=== PATIENT | female | born 1970 | race Caucasian/White ===

== ENCOUNTER 2024-02-14 08:00 | Outpatient (RCR) | payer OTHER, SELFPAY | END 2024-07-28 09:27 | disposition home or self-care (01) | LOC: HO.PTWFD 08:00 | PROVIDERS: Visit Provider Nurse Practitioner Women's Health | DX: M54.16 Radiculopathy, lumbar region (principal); M47.896 Other spondylosis, lumbar region; M51.36 Other intervertebral disc degeneration, lumbar region; M41.125 Adolescent idiopathic scoliosis, thoracolumbar region | CPT/HCPCS: 97110; 97140; 97162; 97535 ==

== ENCOUNTER 2025-06-15 10:59 | Outpatient (AMB) | payer OTHER, SELFPAY ==
--- NOTE | 2025-06-15 11:20 | A.OFFVIS_ITS ---
Intake Visit Reasons: Kidney stones/Recurrent UTI (set)UA+PVR) Intake Note: New patient presents today for initial visit for kidney stones/recurrent UTI's Urology Medication:None Blood Thinner:None Antibiotic Allergies:None PVR:24ml Allergies kiwi (Kiwi (Actinidia Chinensis)) Allergy (Severe, Verified 06/15/25 11:35) ANAPHYLAXIS Sulfa (Sulfonamide Antibiotics) Allergy (Mild, Verified 06/15/25 11:35) RASH Medication List - Last Reconciled 06/15/25 by Arden Shen MD amoxicillin-pot clavulanate 875-125 mg 1 tab PO BID 14 days losartan-hydrochlorothiazide 100-25 mg 1 tab PO DAILY meloxicam 15 mg PO DAILY metformin ER 500 mg PO DAILY omeprazole 20 mg PO DAILY tirzepatide (weight loss) (Zepbound) mg subcut tramadol 50 mg PO HPI Comments Details: 06/15/25--History of Present Illness The patient is a 55 year old female presenting for evaluation of a long history of kidney stones. She reports having passed more than 50 stones and has undergone multiple lithotripsy procedures. A year ago, she had two surgical procedures to remove stones, which included stent placements on both sides. A follow-up CT scan revealed she still had numerous stones on both sides. She decided to change urologists. She has had 24- hour urine studies performed as well. The patient has had recurrent UTIs and has been on antibiotics continuously since February after a UTI began while she was on vacation in [place]. She has been treated with three courses of Macrobid and is now completing different antibiotic. (cephalosporin) In May, the patient states she went to the emergency room with a high fever, but she did not receive IV antibiotics despite being advised to get them at an urgent care visit. The patient reports significant chronic pain, primarily on the left side, which is worse than her usual back pain from severe scoliosis. This pain limits her ability to exercise, including swimming. She takes meloxicam for her back pain, which has not helped this pain, and her PCP suggested trying naproxen. Results - Imaging: - CT scan (03/02/25): Showed multiple stones in both kidneys, including 8 mm stone upper pole right kidney and 7 mm stone in left kidney - Ultrasound (04/09/25): Report was consistent with the CT scan noted multiple stones, bilaterally. - Labs: - Urine culture: 05/16/25--Ecoli - pansensitive. [facility] Medical History Lumbar radiculopathy Kidney stone Chronic back pain HTN (hypertension) Recurrent UTI Surgical History Hx of lithotripsy Review of Systems Const All systems reviewed & are unremarkable except as noted in HPI and below Reports no additional complaints Eyes Reports no additional complaints ENT Reports no additional complaints Card Reports no additional complaints Resp Reports no additional complaints GI Reports no additional complaints Reports as per HPI Musc Reports no additional complaints Skin/Breast Reports system reviewed and no additional complaints, except as documented Neuro Reports no additional complaints Psych Reports no additional complaints Endo Reports no additional complaints Micheal/Lymph Reports no additional complaints Aller/Immun Reports no additional complaints Physical Exam Const General: cooperative, healthy appearing and no acute distress Orientation/consciousness: patient oriented x3 HEENT Head: Yes normal to inspection, Yes normocephalic and Yes atraumatic Eyes Conjunctivae: conjunctivae normal Neck Neck: Yes normal visual inspection and Yes trachea midline Chest Chest palpation & inspection: normal inspection of the chest Resp Effort & Inspection: normal respiratory effort GI Inspection: Yes normal to inspection Neuro General: patient oriented x3 Psych Appearance: grossly normal Office Procedures Post Void Residual Post Residual Void Post Void Residual (PVR): 24 [id number] Void Residual by ultrasound Results AMB Urinalysis, Automated UA Leukoctes 15 Karen/uL Last Edit by Funmilayo Haley on 06/15/25 15:38 UA Nitrite Negative Last Edit by Funmilayo Haley on 06/15/25 15:38 UA Urobilinogen 0.2 mg/dL Last Edit by Funmilayo Haley on 06/15/25 15:38 UA Protein 15 mg/dL Last Edit by Funmilayo Haley on 06/15/25 15:38 UA pH 6.5 Last Edit by Funmilayo Haley on 06/15/25 15:38 UA Blood 25 Ed/uL Last Edit by Funmilayo Haley on 06/15/25 15:38 UA Specific [place] 1.010 Last Edit by Funmilayo Haley on 06/15/25 15:38 UA Ketone Negative Last Edit by Funmilayo Haley on 06/15/25 15:38 UA Bilirubin 0 mg/dL Last Edit by Funmilayo Haley on 06/15/25 15:38 UA Glucose 0 mg/dL Last Edit by Funmilayo Haley on 06/15/25 15:38 Results Reviewed Results Reviewed: Laboratory Last Values Urine pH (Auto) 6.5 06/15/25 12:10 Specific [place] (Auto) 1.010 06/15/25 12:10 Urine Protein (Auto) 15 mg/dL 06/15/25 12:10 Glucose (UA)(Auto) 0 mg/dL 06/15/25 12:10 Urine Ketones (Auto) Negative 06/15/25 12:10 Urine Blood (Auto) 25 Ed/uL 06/15/25 12:10 Urine Nitrite (Auto) Negative 06/15/25 12:10 Urine Bilirubin (Auto) 0 mg/dL 06/15/25 12:10 Urine Urobilinogen (Auto) 0.2 mg/dL 06/15/25 12:10 Leukocyte Esterase (Auto) 15 Karen/uL 06/15/25 12:10 Assessment & Plan Assessment & Plan (1) Hematuria: Code(s): R31.9 - Hematuria, unspecified Category: Medical (2) Flank pain: Code(s): R10.A0 - Flank pain, unspecified side Category: Medical (3) Recurrent UTI: Code(s): N39.0 - Urinary tract infection, site not specified Category: Medical (4) Bilateral kidney stones: Code(s): N20.0 - Calculus of kidney Category: Medical Plan CT Urogram Augmentin 875 mg bid for 14 days Orders: Orders Urine Culture Today N20.0 - Calculus of kidney, N39.0 - Urinary tract infection, site not specified, R31.9 - Hematuria, unspecified AMB Urinalysis Automated Today N39.0 - Urinary tract infection, site not specified AMB Post Void Residual by ultrasound Today N39.0 - Urinary tract infection, site not specified CT urogram Today R10.A0 - Flank pain, unspecified side, R31.9 - Hematuria, unspecified AMB Urinalysis Automated Today Z13.9 - Encounter for screening, unspecified Medications: New amoxicillin-pot clavulanate 875-125 mg 1 tab PO BID 28 tabs 0RF 14 days Patient Instructions: The patient had an opportunity to ask questions regarding treatment plan. The patient expressed understanding and agreement with the above treatment plan. The patient is aware they should contact our office by phone for worsening of their current condition or the appearance of new symptoms. Compliance is encouraged with any medications and followup testing that is ordered. It is a privilege to be allowed the opportunity to participate in the urologic care of your patient. If you have any questions or concerns regarding treatment for the above conditions please do not hesitate to contact me. The office telephone contact is [phone]. This note is constructed in part using voice recognition software. While every effort has been made to ensure accuracy resource management planner errors may have been included. Yours sincerely, Arden Shen MD Scribe Plan - Not visible on output: Patient was informed and verbally consented to the use of an ambient scribe for clinic note documentation during this visit. Coding Level of Care Code New Pt Level 4 (28857) Diagnoses Hematuria R31.9 Flank pain R10.A0 Recurrent UTI N39.0 Bilateral kidney stones N20.0 CPT Codes Post Residual Void - PVR CPT Code: 60791-Ydgn Void Residual by ultrasound ([id number])
== END 2025-06-15 13:37 | disposition home or self-care (01) ==
LOC: HO.HUSH 10:59
PROVIDERS: Visit Provider Urology
DX: R31.9 Hematuria, unspecified (principal); R10.A0 Flank pain, unspecified side; N39.0 Urinary tract infection, site not specified; N20.0 Calculus of kidney
CPT/HCPCS: 99204

== ENCOUNTER 2025-06-15 10:59 | Outpatient (REF) | payer OTHER, SELFPAY ==
--- OUTSIDE RECORDS SUMMARY | 2025-06-15 20:34 | XMS_ITS | Encounter Summary ---
Author Organization [facility] Address [address] [place] [address] Phone Care Team Providers Care Packing House Laborer Name Role Phone Gregoria Lopez PA-C Primary Care Provider [phone] Lucía Watson NP Primary Care Pr ovider Erika Calles MD Unavailable [phone] Encounter Details Date Type Department Care Team (Late st Contact Info) Description 11/16/2019 Transcribe Orders Virtual Department [address] [place] [address] Lucía Watson, ELIZAB[address] [place] [address] Pelvic cramping (Primary Dx) Social History Tobacco Use Types Packs/Day Years Used Date Smoking Tobacco: Never Assessed Comments Unknown Sex and Gender Information Value Date Recorded Sex Assigned at Female 07/17/2020 7:48 PM EST Legal Sex Female 9:36 PM EDT Gender Identity Female 07/17/2020 7:48 PM EST Sexual Orientation Straight 07/17/2020 7: 48 PM EST documented as of this encounter Plan of Treatment Not on file documented as of this encounter Results * US PELVIS TRANSABDOMINAL PLUS TRANSVAGINAL (11/24/2019 12:31 PM EDT) Anatomical Region Laterality Modality Pelvis, Uterus/Adnexa Ultrasound 11/24/2019 12:2 6 PM EDT Impressions 11/24/2019 12:47 PM EDT 1. Intrauterine device identified at 0.4 cm from the fundic end of the endometrial cavity. 2. Uterine leiomyomas. 3. Mild left hydroureteronephrosis with distal ureteral stone. Patient states history of known chronic kidney stones and fibroids. POS - [id number] Narrative 11/24/2019 12:47 PM EDT EXAM: US PELVIS TRANSABDOMINAL PLUS TRANSVAGINAL COMPARISON: None HISTORY: PT HAS IUD IN PLACE REPORTING STRINGS FEELING LOWER THAN USUAL WITH NEW ONSET CRAMPING. EVALUATE IUD PLACEMENT. FINDINGS: UTERUS: The uterus is anteflexed and midline, measures 10.9 cm x 6.2 cm x 6.5 cm, volume of 230.0 cm3, and demonstrates heterogeneous myometrial echotexture. There is a 2.6 x 1.5 x 1.7 cm exophytic mass on the left side of the fundus that likely represents a subserosal leiomyoma. Additional 1.3 x 1.1 x 1.1 cm hypoechoic lesion in the left uterine body likely represents an intramural leiomyoma. The endometrial echocomplex measures 0.5 cm in thickness. An intrauterine device is identified at 0.4 cm from the fundic end of the endometrial cavity. RIGHT OVARY: Only seen transabdominally. Measures 2.9 cm x 1.7 cm x 1.6 cm, volume of 4.1 cm3. Unremarkable appearance LEFT OVARY: Not visualized. PELVIS: No free fluid. OTHERS: Mild hydroureteronephrosis. Visualized portion of the proximal ureter measures 0.5 cm in caliber. The visualized distal left ureter measures up to 0.5 cm in caliber. There is a 0.9 cm echogenic focus associated with posterior acoustic shadowing and twinkle artifact in the visualized portion of the left ureter. Procedure Note Magaly Pittman MD - 11/24/2019 EXAM: US PELVIS TRANSABDOMINAL PLUS TRANSVAGINAL COMPARISON: None HISTORY: PT HAS IUD IN PLACE REPORTING STRINGS FEELING LOWER THAN USUALWITH NEW ONSET CRAMPING. EVALUATE IUD PLACEMENT. FINDINGS: UTERUS: The uterus is anteflexed and midline, measures 10.9 cm x 6.2 cm x6.5 cm, volume of 230.0 cm3, and demonstrates heterogeneous myometrialechotexture. There is a 2.6 x 1.5 x 1.7 cm exophytic mass on the left sideof the fundus that likely represents a subserosal leiomyoma. Additional1.3 x 1.1 x 1.1 cm hypoechoic lesion in the left uterine body likelyrepresents an intramural leiomyoma. The endometrial echocomplex measures0.5 cm in thickness. An intrauterine device is identified at 0.4 cm fromthe fundic end of the endometrial cavity. RIGHT OVARY: Only seen transabdominally. Measures 2.9 cm x 1.7 cm x 1.6cm, volume of 4.1 cm3. Unremarkable appearance LEFT OVARY: Not visualized. PELVIS: No free fluid. OTHERS: Mild hydroureteronephrosis. Visualized portion of the proximalureter measures 0.5 cm in caliber. The visualized distal left uretermeasures up to 0.5 cm in caliber. There is a 0.9 cm echogenic focusassociated with posterior acoustic shadowing and twinkle artifact in thevisualized portion of the left ureter. IMPRESSION: 1. Intrauterine device identified at 0.4 cm from the fundic end of theendometrial cavity. 2. Uterine leiomyomas. 3. Mild left hydroureteronephrosis with distal ureteral stone. Patient states history of known chronic kidney stones and fibroids. POS - [id number] Lucía Peace ELECTRIC LIFT TRUCK DRIVER [facility] US PELVIS Final Result documented in this encounter Visit Diagnoses Diagnosis Pelvic cramping- Primary Pelvic cramping documented in this encounter Care Teams Packing House Laborer Relationship Specialty Start Date End Date Gregoria Lopez PA-C [address] [place] [address] [place] [address] PCP - General Unknown Provider Specialty 06/15/18 11/23/19 Lucía Watson [place] [facility] [place] [address] PCP - General Family Medicine 11/24/19 Erika Calles MD [address] [place] [address] [email or web address] Insurance Assigned Provider 10/09/23 12/11/23 documented as of this encounter Additional Source Comments The information contained in this document represents components of the legal health record. It is not the complete legal health record.[facility]
--- OUTSIDE RECORDS SUMMARY | 2025-06-15 20:34 | XMS_ITS | Encounter Summary ---
Author Organization [facility] Address [address] [place] [address] Phone Care Team Providers Care Airplane Cleaner Name Role Phone Lucía Watson DESK INTERVIEWER Primary Care Pr ovider Encounter Details Date Type Department Care Team (Late st Contact Info) Description 03/24/2024 Ancillary Orders [facility], X-Ray - [address] [address] Mary Loo PA [address] [place] [address]. [place] [address] [email or web address] Pain of left heel (Primary Dx) Social History Tobacco Use Types Packs/Day Years Used Date Smoking Tobacco: Never Alcohol Use Standard Drinks/Week Comments Yes 0 (1 standard drink = 0.6 oz pur e alcohol) wine occasionally Education Answer Date Recorded Are you interested in more education? Not on yung e 10/30/2022 Are you concerned about learning? Not on file 10/30/2022 No 10/30/2022 No 10/30/2022 Digital Access Answer Date Recorded No 11/28/2022 No 11/28/2022 Reliable internet access at home? Not on file 11/28/2022 Device with a working camera? Not on file Comments Unknown Sex and Gender Information Value Date Recorded Sex Assigned at Female 07/17/2020 7:48 PM EST Legal Sex Female 9:36 PM EDT Gender Identity Female 07/17/2020 7:48 PM EST Sexual Orientation Straight 07/17/2020 7: 48 PM EST documented as of this encounter Plan of Treatment Not on file documented as of this encounter Results * XR FOOT 3 OR MORE VIEWS (LEFT) (03/24/2024 11:10 AM EDT) Anatomical Region Laterality Modality Foot Left Computed Radiogr aphy 03/25/2024 3:01 PM EDT Impressions 03/25/2024 3:02 PM EDT No fracture or dislocation. Narrative 03/25/2024 3:02 PM EDT XR FOOT 3 OR MORE VIEWS (LEFT) Referring clinician's provided indication for this examination in Epic: Pain COMPARISON: FINDINGS: No fracture. Normal alignment. Normal joint spaces. No soft tissue swelling. Procedure Note Esteban Devine MD - 03/25/2024 XR FOOT 3 OR MORE VIEWS (LEFT) Referring clinician's provided indication for this examination in Epic:Pain COMPARISON: FINDINGS: No fracture. Normal alignment. Normal joint spaces. No soft tissueswelling. IMPRESSION: No fracture or dislocation. Mary ROMEO IMG XR LOWER EXTREMITY Final Result documented in this encounter Visit Diagnoses Diagnosis Pain of left heel- Primary Pain of left heel documented in this encounter Care Teams Airplane Cleaner Relationship Specialty Start Date End Date Lucía [facility] [place] [address] PCP - General Family Medicine 11/24/19 documented as of this encounter Additional Source Comments The information contained in this document represents components of the legal health record. It is not the complete legal health record.[facility]
--- OUTSIDE RECORDS SUMMARY | 2025-06-15 20:34 | XMS_ITS | Encounter Summary ---
Author Organization [facility] Address [address] [place] [address] Phone Care Team Providers Care Immigration Attorney Name Role Phone Gregoria Lopez PA-C Primary Care Provider [phone] Lucía Watson NP Primary Care Pr ovider Erika Calles MD Unavailable [phone] Encounter Details Date Type Department Care Team (Latest Contact Info) Description 06/15/2018 Ancillary Orders Virtual Department [address] [place] [address] Siri Olguin NP [address] [place] [phone] [email or web address] Social History Tobacco Use Types Packs/Day Years [...] on file documented as of this encounter Visit Diagnoses Diagnosis Lumbar radiculopathy Thoracic or lumbosacral neuritis or radiculitis, unspecified documented in this encounter Care Teams Immigration Attorney Relationship Specialty Start Date End Date Gregoria Lopez PA-C [address] [place] [address] [place] [address] PCP - General Unknown Provider Specialty 06/15/18 11/23/19 Lucía Watson NP [address] [place] [address] PCP - General Family Medicine 11/24/19 Erika Calles MD [address] [place] [address] [email or web address] Insurance Assigned Provider 10/09/23 12/11/23 documented as of this encounter Additional Source Comments The information contained in this document represents components of the legal health record. It is not the complete legal health record.[facility]
--- OUTSIDE RECORDS SUMMARY | 2025-06-15 20:34 | XMS_ITS | Encounter Summary ---
Author Organization [facility] Address [address] [place] [address] Phone Care Team Providers Care Hadoop Developer Name Role Phone Lucía Watson LOCAL TELEPHONE OPERATOR Primary Care Pr ovider Erika Calles MD Unavailable [phone] Encounter Details Date Type Department Care Team (Latest Contact Info) Description 03/22/2023 Transcribe Orders Virtual Department [address] [place] [address] Erika Calles MD [address] [place] [address] [email or web address] Bilateral hip pain (Primary Dx); Kidney stone Social History Tobacco Use Types Packs/Day Years [...] as of this encounter Results * US Kidneys (04/26/2023 9:04 AM EDT) Anatomical Region Laterality Modality Abdomen, Kidney Ultrasound 04/26/2023 4:33 PM EDT Impressions 04/26/2023 6:04 PM EDT Nonobstructing left nephrolithiasis. No hydronephrosis. Narrative 04/26/2023 6:04 PM EDT US KIDNEYS TECHNIQUE: Kidney Ultrasound. COMPARISON: None FINDINGS: Right Kidney: Size: 11.0 cm Suboptimally visualized. No definite shadowing stones or hydronephrosis. Left Kidney: Size: 12.5 cm Echogenic shadowing calyceal foci measuring up to 11 mm in the interpolar region. No hydronephrosis. Bladder: Normal. Procedure Note Ronny Richmond MD - 04/26/2023 US KIDNEYS TECHNIQUE: Kidney Ultrasound. COMPARISON: None FINDINGS: Right Kidney: Size: 11.0 cm Suboptimally visualized. No definite shadowing stones orhydronephrosis. Left Kidney: Size: 12.5 cm Echogenic shadowing calyceal foci measuring up to 11 mm in the interpolarregion. No hydronephrosis. Bladder: Normal. IMPRESSION: Nonobstructing left nephrolithiasis. No hydronephrosis. us Erika Calles MD [facility] US RENAL Final Result documented in this encounter Visit Diagnoses Diagnosis Bilateral hip pain- Primary Pain in joint, pelvic region and thigh Kidney stone Calculus of kidney Kidney stone Calculus of kidney documented in this encounter Care Teams Hadoop Developer Relationship Specialty Start Date End Date Lucía Watson NP [address] [place] [address] PCP - General Family Medicine 11/24/19 Erika Calles MD [address] [place] [address] [email or web address] Insurance Assigned Provider 10/09/23 12/11/23 documented as of this encounter Additional Source Comments The information contained in this document represents components of the legal health record. It is not the complete legal health record.[facility]
--- OUTSIDE RECORDS SUMMARY | 2025-06-15 20:35 | XMS_ITS | Encounter Summary ---
Author Organization [employer] Address [address] [facility] [address] [place] [address] Care Team Providers Care Peoplesoft Financial Developer Name Role Phone [place] remy Unavailable Unavailable Naomi Hartmann NP Primary Care Provider [phone] Reason for Visit * Reason Onset Date Comments Prior Authorization 06/12/2025 Zepbound Encounter Details Date Type Department Care Team (Late st Contact Info) Description 06/12/2025 Telephone [facility] MEDICAL [address] [place] [address] Naomi Hartmann NP [address] [place] [address] Prior Authorization (Zepbound) Social History Tobacco Use Types Packs/Day Years Used Date Smoking Tobacco: Former Cigarettes Passive Smoke Exposure: Past Smokeless Tobacco: Never Alcohol Use Standard Drinks/Week Comments Yes 0 (1 standard drink = 0.6 oz pur e alcohol) 3 glasses of wine weekly PHQ-2 Answer Date Recorded Patient Health Questionnaire-2 Score 0 12/25/2022 Alcohol Answer Date Recorded How often do you have a drink containing alcohol ? 0 06/04/2025 How many drinks containing a lcohol do you have on a typical day when you are drinking? 0 06/04/2025 How often do you have six or more drinks on one occasion? 0 06/04/2025 Housing Stability Answer Date Recorded What is your housing situation today? I have leopoldo khan 01/14/[address] you li ve. Do you have problems with any of the following? None of the above 01/14/2024 Food Insecurity Answer Date Recorded Within the past 12 months, y ou worried that your food would run out before you got money to buy more: Never True 01/14/2024 Within the past 12 months,th e food you bought just didn't last and you didn't have enough money to get more: Never True 06/2024 Transportation Answer Date Recorded In the past 12 months, has l ack of transportation kept you from medical appts, meetings, work or from getting things needed for daily living? No 01/14/2024 Utilities Answer Date Recorded In the past 12 months, has t he electric, gas, oil or water company threatened to shut off services in your home? No 01/14/2024 Depression Answer Date Recorded Patient Health Questionnaire-2 Score 0 12/25/2022 Internet Access Answer Date Recorded Internet Access Q1 Yes 03/05/2024 Internet Access Q2 Not on file 03/05/2024 Education Answer Date Recorded What is the highest level of school you have completed or the highest degree you have received? Master's degree (e.g., MA, MS, Lucille, MEd, PURCHASER, [place]) 01/14/2024 Comments No Sex and Gender Information Value Date Recorded Sex Assigned at Female 10/14/2022 3:07 PM EDT Legal Sex Female 8:32 PM EDT Gender Identity Female 10/14/2022 3:07 PM EDT Sexual Orientation Straight 10/14/2022 3: 07 PM EDT Occupation Industry Job Start Date Job End Date Self-employed Not on file Not on file Not on file documented as of this encounter Miscellaneous Notes * Telephone Encounter - Yue Landa LPN - 06/13/2025 8:43 AM EST Information regarding your request An active PA is already on file with expiration date of 05/08/2026. Please wait to resubmit requestwithin 60 days of that expiration date to obtain a PA renewal. Pt aware via [employer] * Telephone Encounter - Yue Landa LPN - 06/12/2025 10:08 AM EST Pt needs a new pa on Zepbound but when I calculated her weight, she hasn't lost the 5% weight loss to get this covered. Since start of Zepbound only 3.9%. Please advise PT documented in this encounter Plan of Treatment Upcoming Encounters Date Type Department Care Team (Late st Contact Info) Description 06/25/2025 3:40 PM EST Telemedicine [facility] MEDICAL [address] [place] [address] Erika Calles MD [address] [place] [address] documented as of this encounter Visit Diagnoses Not on filedocumented in this encounter Care Teams Peoplesoft Financial Developer Relationship Specialty Start Date End Date Naomi Hartmann NP [address] [place] [address] PCP - General 06/08/25 Italia Loaiza Community Health Worker 10/14/22 documented as of this encounter
--- OUTSIDE RECORDS SUMMARY | 2025-06-15 20:35 | XMS_ITS ---
Author Name [facility] Organization Unknown Encounters Encounter Type Encounter Reason Primary Diagnosis Location Date Ambulatory [facility] Paige 10/2024 Care Team Organization Name Specialty Phone Email Start Date End Da [facility], Erika Calles Primary Care 1 07/09/2024
--- OUTSIDE RECORDS SUMMARY | 2025-06-15 20:35 | XMS_ITS | Encounter Summary ---
Author Organization [employer] Address [address] [place] [address] 7[address] [place] [address] Care Team Providers Care Patient Registration Specialist Name Role Phone BridgewaterJacqueline hackettline Unavailable Unavailable PcpCassidy Unassigned Primary Care Provider Naomi Mejias NP Primary Care Provider [phone] Encounter Details Date Type Department Care Team (Late st Contact Info) Description 05/16/2025 Results Follow-Up [facility] MED[facility] [address] [place] [address] Lyudmila Faye MD [address] [place] [address] POCT urinalysis dipstick manually resulted (CPT 25818), Urinalysis, Complete, with Reflex to Culture, Microscopic Examination, Urine Culture, Routine Social History Tobacco Use Types Packs/Day Years Used Date Smoking Tobacco: Former Cigarettes Smokeless Tobacco: Never Alcohol Use Standard Drinks/Week Comments Yes 0 (1 standard drink = 0.6 oz pur e alcohol) 3 glasses of wine weekly PHQ-2 Answer Date Recorded Patient Health Questionnaire-2 Score 0 12/25/2022 Housing Stability Answer Date Recorded What is your housing situation today? I have leopoldo erin 01/14/[address] you li [...] Master's degree (e.g., MA, MS, Lucille, MEd, RAIL CAR MECHANIC, [employer]) 01/14/2024 Comments Unknown Sex and Gender Information Value Date Recorded Sex Assigned at Female 10/14/2022 3:07 PM EDT Legal Sex Female 8:32 PM EDT Gender Identity Female 10/14/2022 3:07 PM EDT Sexual Orientation Straight 10/14/2022 3: 07 PM EDT Occupation Industry Job Start Date Job End Date Self-employed Not on file Not on file Not on file documented as of this encounter Plan of Treatment Upcoming Encounters Date Type Department Care Team (Late st Contact Info) Description 06/25/2025 3:40 PM EST Telemedicine [facility] MED[facility] [address] [place] [address] Erika Calles MD [address] [place] [address] documented as of this encounter Visit Diagnoses Diagnosis Dysuria- Primary History of kidney stones documented in this encounter Care Teams Patient Registration Specialist Relationship Specialty Start Date End Date PcpDelmywn Unassigned PCP - General Family Medicine 04/30/25 06/07/25 Naomi Hartmann NP [address] [place] [address] PCP - General 06/08/25 Italia Loaiza Community Health Worker 10/14/22 documented as of this encounter
--- OUTSIDE RECORDS SUMMARY | 2025-06-15 20:35 | XMS_ITS | Clinical Summary ---
Author Organization [employer] Address [address] [place] [address] 7[address] [place] [address] Care Team Providers Care Retort Or Condenser Press Operator Name Role Phone Italia Loaiza Unavailable Unavailable Naomi Hartmann NP Primary Care Provider [phone] Allergies Active Allergy Reactions Criticality Noted Date Comments Kiwi Extract Anaphylaxis High 10/08/2022 Other reaction(s): Unknown Other Unknown 10/08/2022 Seasonal allergies Sulfa Antibiotics Rash Low 10/08/2022 Sulfamethoxazole-Trimethop rim Rash Low 01/14/2024 Medications tamsulosin (Flomax) 0.4 MG 24 hr capsule 1 capsule. Activ e Levonorgestrel (Mirena, 52 MG,) 20 MCG/DAY intrauterine device as directed Intrauterine 016 Active losartan-hydroC HLOROthiazide (Hyzaar) 100-25 MG tabletIndicatio ns:Primary hypertension TAKE ONE TABLET BY MOUTH EVERY MORNING 90 tablet 3 025 Active traMADol (Ultram) 50 MG tabletIndicatio ns:Low back pain at multiple sites TAKE ONE TABLET BY MOUTH EVERY MORNING AND AT BEDTIME NEEDED FOR SEVERE PAIN 20 tablet 025 Active Additional Information Patient taking differently: 50 mg Oral As needed, moderate pain, Reported on 06/04/2025 metFORMIN XR (Glucophage-XR) 500 MG 24 hr tabletIndicatio ns:Class 1 obesity due to excess calories with serious comorbidity and body mass index (BMI) of 30.0 to 30.9 in adult TAKE ONE TABLET BY MOUTH EVERY DAY WITH BREAKFAST ; DO NOT CRUSH, CHEW, OR SPLIT 90 tablet 3 025 Active omeprazole (PriLOSEC) [address] capsuleIndicati ons:Gastroesoph ageal reflux disease without esophagitis TAKE ONE CAPSULE BY MOUTH EVERY DAY 90 capsule 3 025 Active Tirzepatide-Home ght Management (Zepbound) 10 MG/0.5ML solution auto-injectorIn dications:BMI 40.0-44.9, adult (CMS/HCC) ([facility]) Inject 0.5 mL (10 mg) under the skin every 7 (seven) days. 2 mL 3 025 2025 Active meloxicam (Mobic) 15 MG tabletIndicatio ns:Adolescent idiopathic scoliosis of lumbosacral spine TAKE ONE TABLET BY MOUTH EVERY DAY 28 tablet 1 025 Active Additional Information Patient taking differently:15 mg OralAs needed, mild pain, Reported on 06/04/2025 ketorolac (Toradol) 10 MG tablet Take 10 mg by mouth if needed in the morning, at noon, in the evening, and at bedtime for moderate pain. 013 Active cefpodoxime (Vantin) 200 MG tabletIndicatio ns:Recurrent UTI,Dysuria,Kid [place] stone Take 1 tablet (200 mg) by mouth 2 times daily for 14 days. 28 tablet 025 2024 Active meloxicam (Mobic) 15 MG tabletIndicatio ns:Adolescent idiopathic scoliosis of lumbosacral spine TAKE ONE TABLET BY MOUTH EVERY DAY 28 tablet 1 024 2024 Discontinued Tirzepatide-Home ght Management (Zepbound) 10 MG/0.5ML solution auto-injectorIn dications:BMI 40.0-44.9, adult ([facility]) ([facility]) Inject 0.5 mL (10 mg) under the skin every 7 (seven) days. 2 mL 3 025 2024 Discontinued(R eorder (will not trigger notification to Pharmacy)) cefpodoxime (Vantin) 100 MG tabletIndicatio ns:Dysuria,Hist ory of kidney stones Take 1 tablet (100 mg) by mouth 2 times daily for 10 days. 20 tablet 025 2024 Discontinued(R eorder (will not trigger notification to Pharmacy)) cefpodoxime (Vantin) 200 MG tabletIndicatio ns:Dysuria,Hist ory of kidney stones Take 1 tablet (200 mg) by mouth 2 times daily for 7 days. 14 tablet 025 2024 Additional Information Patient not taking.Reported on 06/04/2025 Active Problems Problem Noted Date Diagnosed Date Anatomical narrow angle 10/16/2024 Prediabetes 03/22/2023 Acute bacterial sinusitis 10/26/2022 Class 1 obesity due to exces s calories with serious comorbidity and body mass index (BMI) of 32.0 to 32.9 in adult 10/19/2022 Overview (10/19/2022): Normal labs Will initiated treatment with GLP-1 - explained MOA Close f/u every 4 weeks. Family history of BRCA gene positive 07/28/2022 GERD (gastroesophageal reflux disease) Hypertension 07/28/2022 Kidney stone 07/28/2022 Overview (06/08/2023): Followed by Dr. Mccoy. Last consult 06/07/23 Several non-obstructing stones Awaiting stone analysis. Low back pain 07/28/2022 Mixed hyperlipidemia 07/28/2022 Encounters Date Type Department Care Team Description 06/13/[address] [address] Naomi Hartmann NP Prior Authorization (Weight log) 06/12/[address] [address] Naomi Hartmann NP Prior Authorization (Zepbound) 06/07/2025 Results Follow-Up [address] [address] Tori Lares DO Urine Culture, Routine 06/04/2025 9:45 AM EST Office Visit [address] [address] Tori Lares DO Recurrent UTI (Primary Dx); Dysuria; Kidney stone 06/04/[address] [address] PcpCassidy Unassigned ongoing UTI 05/28/[address] [address] PcpCassidy Unassigned Referral 05/26/[address] [address] Erika Calles MD Adolescent idiopathic scoliosis of lumbosacral spine 05/21/2025 4:15 PM EST Telemedicine [address] [address] Tori Lares DO Dysuria (Primary Dx); History of kidney stones 05/17/[address] [address] PcpCassidy Unassigned 05/16/2025 2:00 PM EST Clinical Support [address] [address] Deneen Rodriguez LPN Recurrent UTI 05/16/2025 Results Follow-Up [address] [address] Lyudmila Faye MD POCT urinalysis dipstick manually resulted (CPT 24057), Urinalysis, Complete, with Reflex to Culture, Microscopic Examination, Urine Culture, Routine 05/08/[address] [address] Cassidy Perez Unassigned Prior Authorization (Zepbound) 05/07/2025 10:00 AM EST Clinical Support [address] [address] Miya Clark RN Kidney stone (Primary Dx); Dysuria 04/23/[address] [address] Cassidy Perez Unassigned Prior Authorization (Zepbound) 04/09/[address] [address] Cassidy Perez Unassigned ongoing UTI 04/02/2025 Refill [facility] [address] [place] [address] Erika Calles MD BMI 40.0-44.9, adult (CMS/HCC) (Primary Dx) from Last 3 Months Immunizations Immunization Administration Dates Next Due Influenza Injectable Quadriv alant Preservative Free IIV4 MDCK 05/10/2022,06/02/2021 Influenza injectable quadriv alent preservative free 05/06/2023,03/29/2020,04/22/2019 Influenza, IIV3, injectable 03/05/2020,1 ,05/10/2017,2014 Influenza, Recombinant, inje ctable, preservative free 09/21/2016 Influenza, Split (incl. cody fied surface antigen) 05/06/2012,05/05/2002 Influenza, seasonal, injecta ble, preservative free 06/23/2024 MMR 03/12/2025 Pfizer Covid-19 Vaccine 12+ 09/02/2020, 1 TD (adult), 2 Lf tetanus tox oid, preservative free, adsorbed 04/02/2015 Tdap 06/01/2005 Zoster, Recombinant 05/10/2022,04/22/2019 Family History Medical History Relation Name Comments Alcohol abuse Father Roni Hankins Diabetes Maternal Grandmother Lydumila Higgins Glaucoma Maternal Grandmother Lyudmila Higgins Bone cancer Other cousin Breast cancer Other cousin BrCA positive cousin, Those are the offspring of her maternal great aunt and paternal great uncle Ovarian cancer Other cousin Relation Name Status Comments Father Roni Hankins Alive Maternal Grandmother Lyudmila Higgins Other cousin Social History Tobacco Use Types Packs/Day Years Used Date Smoking Tobacco: Former Cigarettes Passive Smoke Exposure: Past Smokeless Tobacco: Never Tobacco Cessation:Counseling Given: Not Answered Alcohol Use Standard Drinks/Week Comments Yes 0 [...] Master's degree (e.g., MA, MS, Lucille, MEd, DIVISION DIRECTOR, [employer]) 01/14/2024 Comments No Sex and Gender Information Value Date Recorded Sex Assigned at Female 10/14/2022 3:07 PM EDT Legal Sex Female 8:32 PM EDT Gender Identity Female 10/14/2022 3:07 PM EDT Sexual Orientation Straight 10/14/2022 3: 07 PM EDT Occupation Industry Job Start Date Job End Date Self-employed Not on file Not on file Not on file Last Filed Vital Signs Vital Sign Reading Time Taken Comments Blood Pressure 112/78 06/04/2025 10:08 AM EST Pulse 80 06/04/2025 10:08 AM EST Temperature 37.6 C (99.6 F) 05/07/2025 10:42 AM EST Respiratory Rate 16 03/24/2024 9:57 AM EDT Oxygen Saturation 97% 06/04/2025 10: 08 AM EST Inhaled Oxygen Concentration - - Weight 78.4 kg (172 lb 12.8 oz) 025 10:08 AM EST Height 167.6 cm (5' 6 ) 06/04/2025 10:0 8 AM EST Body Mass Index 27.89 06/04/2025 10:08 AM EST Plan of Treatment Upcoming Encounters Date Type Department Care Team (Late st Contact Info) Description 06/25/2025 3:40 PM EST Telemedicine [facility] MEDICAL [address] [place] [address] Erika Calles MD [address] [place] [address] Health Maintenance Due Date Last Done Comments CT Colonography 1969 Colonoscopy 1969 Colorectal Cancer Screening 1969 FIT DNA/Cologuard 1969 FIT 1969 FOBT 1969 HIV Screening 1969 Sigmoidoscopy 1969 Hepatitis C Screening 1987 Hepatitis B Vaccines (1 of 3 - 19+ 3-dose series) 1988 Cervical Cancer Screening 12/19/2014 HPV/Cotest 12/19/2014 12/19/2013 Pap Smear 12/19/2014 12/19/2013, 12/03/2010 Pneumococcal Vaccine: 50+ Years (1 of 1 - PCV) 2019 Depression Screening 12/26/2023 12/25/2022, 12/26/19 SDOH Screening 01/13/2025 01/14/2024 DTaP/Tdap/Td Vaccines (3 - Td or Tdap) 04/02/2025 04/02/2015, 06/01/2005 Mammogram 06/23/2025 06/23/2023, 06/05, 04/06/2017 Disability Screening 09/18/2025 09/18/2024 Diabetes: Hemoglobin A1C 12/22/2025 025, 12/25/2022, 09/24/2021 Alcohol/Substance Use Screening 06/04/2026 06/04/2025 Tobacco Screening 06/04/2026 06/04/2025 Lipid Panel 12/22/2029 12/22/2024, 12/04, 09/24/2021, Additional history exists RSV Patients and Patients Aged 60 years or older (1 - 1-dose 75+ series) 2044 Zoster Vaccines Completed 05/10/2022, 04/22/2019 COVID-19 Vaccine Completed 04/04/2025, , 12/27/2023, Additional history exists Influenza Vaccine Completed 04/04/2025, , 05/06/2023, Additional history exists HIB Vaccines Aged Out No longer eligi ble based on patient's age to complete this topic HPV Vaccines Aged Out No longer eligi ble based on patient's age to complete this topic Hepatitis A Vaccines Aged Out No long er eligible based on patient's age to complete this topic IPV Vaccines Aged Out No longer eligi ble based on patient's age to complete this topic Meningococcal B Vaccine Aged Out No l onger eligible based on patient's age to complete this topic Meningococcal Vaccine Aged Out No harinder sarah eligible based on patient's age to complete this topic RSV under 20 months Aged Out No longe r eligible based on patient's age to complete this topic Rotavirus Vaccines Aged Out No longer eligible based on patient's age to complete this topic Procedures Procedure Name Priority Date/Time Associated Diagnosis Comments POCT URINALYSIS DIPSTICK Routine 06/04/2025 10:51 AM EST Recurrent UTI URINE CULTURE, ROUTINE (NON ORDERABLE) Routine 06/04/2025 10:45 AM EST MICROSCOPIC EXAMINATION (NON ORDERABLE) Routine 06/04/2025 10:45 AM EST URINALYSIS, COMPLETE, WITH REFLEX TO CULTURE Routine 06/04/2025 10:45 AM EST Recurrent UTI Dysuria POCT URINALYSIS DIPSTICK Routine 05/16/2025 2:41 PM EST Recurrent UTI URINE CULTURE, ROUTINE (NON ORDERABLE) Routine 05/16/2025 12:00 AM EST MICROSCOPIC EXAMINATION (NON ORDERABLE) Routine 05/16/2025 12:00 AM EST URINALYSIS, COMPLETE, WITH REFLEX TO CULTURE Routine 05/16/2025 12:00 AM EST Recurrent UTI POCT URINALYSIS DIPSTICK Routine 05/07/2025 11:07 AM EST Kidney stone URINE CULTURE, ROUTINE (NON ORDERABLE) Routine 05/07/2025 12:00 AM EST MICROSCOPIC EXAMINATION (NON ORDERABLE) Routine 05/07/2025 12:00 AM EST URINALYSIS, COMPLETE, WITH REFLEX TO CULTURE Routine 05/07/2025 12:00 AM EST Kidney stone HEMOGLOBIN A1C Routine 12/22/2024 3:36 PM EDT Prediabetes LIPID PANEL, STANDARD Routine 12/22/2024 3:36 PM EDT Mixed hyperlipidemia BI MAMMOGRAM SCREENING TOMOSYNTHESIS BILATERAL Routine 06/23/2023 3:16 PM EST THIN PREP PAP, WITH HPV Routine 12/19/2013 12:00 AM EDT from Last 3 Months or Most Recently Relevant to Health Maintenance Results * (ABNORMAL) POCT urinalysis dipstick manually resulted (CPT 73539) (06/04/2025 10:51 AM EST) Only the most recent of3 resultswithin the time period is included. Color, UA Yellow Clarity, UA Clear Glucose, UA Negative Bilirubin, UA Negative Ketones, UA Negative Spec Grav, UA 1.010 Blood, UA Positive(A) Negative, None Detected pH, UA 7.0 Protein, UA Negative Urobilinogen, UA 0.2 Leukocytes, UA 3+ 500+++(A) Negative, Rare, Trace, 1+ (17), 2+ (35), 3+ (70), Trace (15) Nitrite, UA Negative Negative, None Detected Urine (Urine, Random) 06/04/2025 10:51 AM EST [facility] POINT OF CARE TEST ENTER/EDIT ORDERABLES Final Result * (ABNORMAL) Urine Culture, Routine (06/04/2025 10:45 AM EST) Only the most recent of3 resultswithin the time period is included. Culture, Urine, Routine Final report(A) [facility] [place] Result 1 Escherichia coli(A) [facility] Comment: Cefazolin with an FALLON <=16 predicts susceptibility to the oral agents cefaclor, cefdinir, cefpodoxime, cefprozil, cefuroxime, cephalexin, and loracarbef when used for therapy of uncomplicated urinary tract infections due to E. coli, Klebsiella pneumoniae, and Proteus mirabilis. Greater than 100,000 colony forming units per mL Antimicrobial Susceptibility [facility] [place] Comment: S = Susceptible; I = Intermediate; R = Resistant P = Positive; N = Negative MICS are expressed in micrograms per mL Antibiotic RSLT#1 RSLT#2 RSLT#3 RSLT#4 Amoxicillin/Clavulanic Acid S Ampicillin S Cefazolin S Cefepime S Cefoxitin S Cefpodoxime S Ceftriaxone S Ciprofloxacin S Ertapenem S Gentamicin S Levofloxacin S Meropenem S Nitrofurantoin S Piperacillin/Tazobactam S Tetracycline S Tobramycin S Trimethoprim/Sulfa S 06/04/2025 10:4 5 AM EST 06/04/2025 Narrative Resulting Agency Comment Performed at: 02 - [facility] [address], [address], [place], [place] [id number] Front Office Administrator: Bill Herbert MD, Phone: [phone] [facility] HISTORICAL/NON ORDERABLE LABS Final Result [facility] 2 [facility] [address] [place] [address] * (ABNORMAL) Microscopic Examination (06/04/2025 10:45 AM EST) Only the most recent of3 resultswithin the time period is included. WBC, Urine >30(A) 0 - 5 /hpf [facility] RBC, Urine 0-2 0 - 2 /hpf [facility] Epithelial Cells (non renal) 0-10 0 - 10 /hpf [facility] Casts None seen None seen /lpf [facility] Bacteria Few None seen/Few [facility] 06/04/2025 10:4 5 AM EST 06/04/2025 Narrative Resulting Agency Comment Performed at: - [facility] [address] [place], [place] [id number] Front Office Administrator: Zhanna Donovan MD, Phone: [phone] us Tori Lares DO HISTORICAL/NON ORDERABLE LABS Final Result [facility] [address] [place] [address] * (ABNORMAL) Urinalysis, Complete, with Reflex to Culture [[id number]] (06/04/2025 10:45 AM EST) Only the most recent of3 resultswithin the time period is included. Specific [place] 1.016 1.005 - 1.030 [facility] pH, Urine 6.5 5.0 - 7.5 [facility] Color Yellow Yellow [facility] Appearance Clear Clear [facility] Leukocyte esterase, Urine 2+(A) Negative [facility] Protein,Urine Negative Negative/Tra ce [facility] Glucose, Urine Negative Negative [facility] Ketones,Urine Negative Negative [facility] Occult Blood,Urine Negative Negative [facility] Bilirubin,Urine Negative Negative [facility] Urobilinogen,Se mi-Qn 0.2 0.2 - 1.0 mg/dL [facility] Nitrite,Urine Positive(A) Negative [facility] Microscopic Examination See below: [facility] Comment:Microscopic was junie cated and was performed. Urinalysis Reflex [facility] Comment:This specimen has re flexed to a Urine Culture. Urine 06/04/2025 10:4 5 AM EST 06/04/2025 Narrative Resulting Agency Comment Performed at: - [facility] [address] [id number] Front Office Administrator: Zhanna Donovan MD, Phone: [phone] us Tori Lares DO LAB URINE ORDERABLES Final Res ult Performing Organization Address [facility] Co de Phone Number [facility] [address] [facility] [address] [address] * Hemoglobin A1c (12/22/2024 3:36 PM EDT) Hemoglobin A1c 5.5 4.8 - 5.6 % [facility] 1 Comment: Prediabetes: 5.7 - 6.4 Diabetes: >6.4 Glycemic control for adults with diabetes: <7.0 Blood Venous blood specimen / Unknown 12/22/2024 3:36 PM EDT 12/22/2024 Narrative [facility] 1 - 12/23/2024 6:05 AM EDT Performed at: - [facility] [address] [id number] Front Office Administrator: Zhanna Donovan MD, Phone: [phone] us Erika Calles MD LAB BLOOD ORDERABLES Final Resul t Performing Organization Address City/[facility]/ZIP Co de Phone Number [facility] 1 * (ABNORMAL) Lipid Panel, Standard (12/22/2024 3:36 PM EDT) Cholesterol, Total 193 100 - 199 mg/dL [facility] 1 Triglycerides 184(H) 0 - 149 mg/dL [facility] 1 HDL Cholesterol 30(L) >39 mg/dL [facility] 1 VLDL Cholesterol Maged 33 5 - 40 mg/dL [facility] 1 LDL Chol Calc (NIH) 130(H) 0 - 99 mg/dL [facility] 1 Blood Venous blood specimen / Unknown 12/22/2024 3:36 PM EDT 12/22/2024 Narrative [facility] 1 - 12/23/2024 6:05 AM EDT Performed at: [facility] [address] [id number] Front Office Administrator: Zhanna Donovan MD, Phone: [phone] us Erika Calles MD LAB BLOOD ORDERABLES Final Resul t [facility] 1 * BI Mammogram Screening Tomosynthesis Bilateral (06/23/2023 3:16 PM EST) Anatomical Region Laterality Modality Breast Bilateral Mammography 06/23/2023 3:16 PM EST Narrative 06/24/2023 8:01 AM EST PROCEDURE: MM Digital Mammo Screening INDICATION: Screening for breast cancer. No known palpable abnormalities. COMPARISON: [place] [id number] 08/24/1710 05/02/2015. TECHNIQUE: Full-field digital CC and MLO 3D tomosynthesis images of both breasts were acquired. Computer-aided detection (CAD) was utilized in the interpretation of this study. DENSITY: The breast tissue is heterogeneously dense, which may obscure masses. FINDINGS: No suspicious masses, suspicious microcalcifications, or areas of architectural distortion are seen in either breast to suggest malignancy. IMPRESSION: No mammographic evidence of malignancy. RECOMMENDATION: Annual mammographic screening BI-RADS: 1 (Negative) Lay letter mailed to patient WSN: [id number] Ordering Physician: Lucía Gallardo Dictated By: Silvia Gibbs MD, I Dictated Date/Time: 06/24/23 7:58 am Reviewed By: Silvia Gibbs MD, I Signed By: Silvia Gibbs MD, I Signed Date/Time: 06/24/23 7:58 am Transcribed By: SPENCER Registered Nurse Post Partum Date/Time: 06/24/23 7:56 am Birads: Procedure Note Donotuseinterpreter, Image - 06/24/2023 PROCEDURE: MM Digital Mammo Screening INDICATION: Screening for breast cancer. No known palpableabnormalities. COMPARISON: [place] [id number] 08/24/1710 05/02/2015. TECHNIQUE: Full-field digital CC and MLO 3D tomosynthesis images of bothbreasts were acquired. Computer-aided detection (CAD) was utilized in theinterpretation of this study. DENSITY: The breast tissue is heterogeneously dense, which may obscuremasses. FINDINGS: No suspicious masses, suspicious microcalcifications, or areasof architectural distortion are seen in either breast to suggestmalignancy. IMPRESSION: No mammographic evidence of malignancy. RECOMMENDATION: Annual mammographic screening BI-RADS: 1 (Negative) Lay letter mailed to patient WSN: [id number] Ordering Physician: Lucía Gallardo Dictated By: Silvia Gibbs MD, I Dictated Date/Time: 06/24/23 7:58 am Reviewed By: Silvia Gibbs MD, I Signed By: Silvia Gibbs MD, I Signed Date/Time: 06/24/23 7:58 am Transcribed By: SPENCER Registered Nurse Post Partum Date/Time: 06/24/23 7:56 am Birads: Lucía Gallardo LAUNDERER HAND IMG BI PROCEDURES Elaina l Result * THIN PREP PAP, WITH HPV (12/19/2013 12:00 AM EDT) Historical Provider LAB CYTOLOGY ORDERABLES F inal Result Performing Organization Address City/State/[facility] de Phone Number [facility] [address] [place] [phone] from Last 3 Months or Most Recently Relevant to Health Maintenance Insurance finalsite OPEN ACCESS finalsite OPEN ACCESS Care Teams Retort Or Condenser Press Operator Relationship Specialty Start Date End Date Naomi Hartmann NP [address] [place] [address] PCP - General 06/08/25 Italia Loaiza Community Health Worker 10/14/22
--- OUTSIDE RECORDS SUMMARY | 2025-06-15 20:35 | XMS_ITS | Clinical Summary ---
Author Organization [facility] Address [address] [place] [id number] Phone Care Team Providers Care Java Security Engineer Name Role Phone Lucía Watson WAIST CUTTER Primary Care Pr ovider Allergies Active Allergy Reactions Criticality Noted Date Comments Sulfa (Sulfonamide Antibiotics) 07/05 Medications hydroCHLOROthia zide (HYDRODIURIL) 25 MG tablet Take 2 tablets (50 mg total) by mouth daily for 7 days. 14 tablet 07/17/2020 Active predniSONE (DELTASONE) 10 MG tablet Take 1 tablet (10 mg total) by mouth daily. 60 mg for 2 days, then 40 mg for 2 days, then 20 mg for 2 days, then 10 mg for 2 days 26 tablet 11/17/2023 Active Social History Tobacco Use Types Packs/Day Years [...] Orientation Straight 07/17/2020 7: 48 PM EST Last Filed Vital Signs Vital Sign Reading Time Taken Comments Blood Pressure 162/102 07/17/2020 9:53 PM EST Pulse 80 07/17/2020 9:53 PM EST Temperature 37 C (98.6 F) 07/17/2020 7:45 PM EST Respiratory Rate 18 07/17/2020 9:53 PM EST Oxygen Saturation 97% 07/17/2020 9:53 PM EST Inhaled Oxygen Concentration - - Weight 81.6 kg (180 lb) 07/17/2020 7:45 PM EST Height 170.2 cm (5' 7 ) 07/17/2020 7:45 PM EST Body Mass Index 28.19 07/17/2020 7:45 PM EST Plan of Treatment Health Maintenance Due Date Last Done Comments DEPRESSION SCREENING 1981 HEPATITIS C SCREENING 1987 HIV ONE-TIME SCREENING (18-65 YEARS) 1987 PAP SMEAR 1990 COLOGUARD 2014 COLONOSCOPY 2014 COLORECTAL CANCER SCREENING 2014 FIT TEST 2014 FOBT 2014 SIGMOIDOSCOPY 2014 VIRTUAL COLONOSCOPY 2014 Adult Td,Tdap Booster 06/01/2015 06/01/2005 PNEUMOCOCCAL VACCINES (50+ years) (1 of 1 - PCV) 2019 INFLUENZA VACCINE (#1) 2025 , 05/10/2022, 06/02/2021, Additional history exists COVID-19 VACCINE (2024- season) 2025 05/06/2023, 03/13/2022, 10/27/2021, Additional history exists MAMMOGRAM 06/23/2025 06/23/2023, 06/23/2023 LIPID PANEL 12/26/2027 12/25/2022, 12/25/2022 RSV VACCINE (1 - 1-dose 75+ series) 2044 ZOSTER VACCINES Completed 05/10/2022, 04/22/2019 SMOKING STATUS SCREENING (Once After 26 Yrs) Completed 11/17/2023 HEPATITIS A VACCINES Aged Out No long er eligible based on patient's age to complete this topic HIB VACCINES Aged Out No longer eligi ble based on patient's age to complete this topic MENINGOCOCCAL VACCINES (ACWY) Aged Out No longer eligible based on patient's age to complete this topic MENINGOCOCCAL VACCINES (B) Aged Out N o longer eligible based on patient's age to complete this topic Medical Devices Not on file Insurance CIGNA PPO CIGNA PPO CIGNA PPO CIGNA PPO CIGNA PPO CIGNA PPO Care Teams Java Security Engineer Relationship Specialty Start Date End Date Lucía Watson [facility] [place] [address] PCP - General Family Medicine 11/24/19 Additional Source Comments The information contained in this document represents components of the legal health record. It is not the complete legal health record.[facility]
--- OUTSIDE RECORDS SUMMARY | 2025-06-15 20:35 | XMS_ITS | Encounter Summary ---
Author Organization [facility] Address [address] [place] [address] [address] [place] [address] Care Team Providers Care Patent Agent Name Role Phone Lucía Gallardo Primary Care Provider Unavailable Italia Loaiza Unavailable Pcp, Cassidy Unassigned Primary Care Provider U Katelynn Dias DO Primary Care Provider [phone] Pcp, Cassidy Nicessigned Primary Care Provider U Naomi Willingham NP Primary Care Provider [phone] Encounter Details Date Type Department Care Team (Late st Contact Info) Description 10/13/2022 Orders Only [facility] MEDICAL [address] [place] [address] Lucía Gallardo FNP Social History Tobacco Use Types Packs/Day Years Used Date Smoking Tobacco: Never Assessed Comments Unknown Sex and Gender Information Value Date Recorded Sex Assigned at Female 10/14/2022 3:07 PM EDT Legal Sex Female 8:32 PM EDT Gender Identity Female 10/14/2022 3:07 PM EDT Sexual Orientation Straight 10/14/2022 3: 07 PM EDT documented as of this encounter Plan of Treatment Upcoming Encounters Date Type Department Care Team (Late st Contact Info) Description 06/25/2025 3:40 PM EST Telemedicine [facility] [address] [place] [address] Erika Calles MD [address] [place] [address] documented as of this encounter Visit Diagnoses Not on filedocumented in this encounter Care Teams Patent Agent Relationship Specialty Start Date End Date Lucía Gallardo FNP PCP - General Family Medicine 09/14/22 02/05/25 Cassidy Perez Unassigned PCP - General Family Medicine 02/06/25 Katelynn Mcfarland DO [address] [place] [address] PCP - General Sales Development Specialist 04/27/25 04/29/25 Cassidy Perez Unassigned PCP - General Family Medicine 04/30/25 06/07/25 Naomi Hartmann NP [address] [place] [address] PCP - General 06/08/25 Italia Loaiza Community Health Worker 10/14/22 documented as of this encounter
--- OUTSIDE RECORDS SUMMARY | 2025-06-15 20:35 | XMS_ITS | Encounter Summary ---
Author Organization [employer] Address [address] [facility] [address] [place] [address] Care Team Providers Care Senior Science Consultant Name Role Phone [place] Unavailable Unavailable Naomi Hartmann NP Primary Care Provider [phone] Reason for Visit * Reason Onset Date Comments Prior Authorization 06/13/2025 Weight log Encounter Details Date Type Department Care Team ([facility] st Contact Info) Description 06/13/2025 Telephone [facility] MEDICAL [address] [place] [address] Naomi Hartmann NP [address] [place] [address] Prior Authorization (Weight log) Social History Tobacco Use Types Packs/Day Years [...] Master's degree (e.g., MA, MS, Lucille, MEd, GREENSKEEPER, SANJUANITA) 01/14/2024 Comments No Sex and Gender [...] Encounter - Yue Landa LPN - 06/13/2025 8:36 AM EST Starting BMI: 28.9 Date:11/17/24 Starting weight: 179 Date:11/17/24 Ending weight: 168 Date:06/13/25 Ending BMI: 27.1 Date:06/13/25 Lost 11 pounds and 6.15% documented in this encounter Plan of Treatment Upcoming Encounters Date Type Department Care Team (Late st Contact Info) Description 06/25/2025 3:40 PM EST Telemedicine [address] [address] Erika Calles MD [address] [facility] [place] [address] documented as of this encounter Visit Diagnoses Not on filedocumented in this encounter Care Teams Senior Science Consultant Relationship Specialty Start Date End Date Naomi Hartmann NP [address] [facility] [place] [address] PCP - General 06/08/25 Italia Loaiza Community Health Worker 10/14/22 documented as of this encounter
--- OUTSIDE RECORDS SUMMARY | 2025-06-15 20:35 | XMS_ITS | Encounter Summary ---
Author Organization [employer] Address [address] [facility] [address] [place] [address] Care Team Providers Care Tobacco Educator Name Role Phone [place], [place] Unavailable Unavailable PcpCassidy Unassigned Primary Care Provider Namoi Mejias NP Primary Care Provider [phone] Encounter Details Date Type Department Care Team (Late st Contact Info) Description 06/07/2025 Results Follow-Up [facility] MEDICAL [address] [place] [address] Tori Lares DO [address] [place] [address] Urine Culture, Routine Social History Tobacco Use [...] Master's degree (e.g., MA, MS, Lucille, MEd, SECURITY SCREENER, SANJUANITA) 01/14/2024 Comments No Sex and Gender [...] Info) Description 06/25/2025 3:40 PM EST Telemedicine [facility] MEDICAL [address] [place] [address] Erika Calles MD [address] [place] [address] documented as of this encounter Visit Diagnoses Not on filedocumented in this encounter Care Teams Tobacco Educator Relationship Specialty Start Date End Date Cassidy Perez Unassigned PCP - General Family Medicine 04/30/25 06/07/25 Naomi Hartmann NP [address] [place] [address] PCP - General 06/08/25 Italia Loaiza Community Health Worker 10/14/22 documented as of this encounter
== END 2025-06-15 11:00 | disposition home or self-care (01) ==
LOC: HO.LAB 10:59
PROVIDERS: Visit Provider Urology
DX: N20.0 Calculus of kidney (principal); N39.0 Urinary tract infection, site not specified; R31.9 Hematuria, unspecified
CPT/HCPCS: 87086